=== PATIENT | female | born 1960 | race African-American/Black ===

== ENCOUNTER → 2017-06-26 | Outpatient (CLI) | payer OTHER ==
[~2017-06-26] MED LIST: COREG PO; IBUPROFEN PO; LISINOPRIL PO; PEPCID AC20 MG PO; PREDNISONE PO; ZYRTEC PO
--- NOTE | ~2017-06-26 | CR97 ---
[facility] A Service of [facility] RADIOLOGY TEXT RESULTS PATIENT: DANIELLA MIMS LOCATION: [facility] : 64 UNIT #: [id number] AGE: [address]: Monico Sarkar III, MD SEX: F ORDER DR: [id number] [place], [place] [address] [id number] O MR#: [id number] #: [id number] NAME: DANIELLA MIMS : 1960 SEX: F STUDY DATE/TIME: 06/26/2017 7:59 UNIT: [facility] ROOM: STUDY DESCRIPTION: CR Esophagram Attending Physician: Monico Sarkar III, M.D. Referring Physician: Monico Sarkar III, M.D. Ordering Physician: Monico Sarkar III, M.D. Primary Care Physician: Hui Howell M.D. MEDICAL IMAGING REPORT This report is preliminary unless electronic signature is present EXAM Single-contrast barium esophagram. INDICATION dysphagia TECHNIQUE The patient was administered thin barium and multiple fluoroscopic images were obtained. FINDINGS Phi angle on today's exam is roughly 58.9 degrees which really is not significantly changed when compared to the patient's initial postoperative examination. The patient's gastric pouch does appear dilated and passage of contrast through the laparoscopic gastric band was extremely slow, the channel certainly appears very narrowed. Again, there is concentric dilatation of the gastric pouch. Patient was noted to have spontaneous reflux into at least the mid esophagus. Esophageal motility appeared within normal limits. Total fluoroscopy time was 1 minute. A total of 14 fluoroscopic images were obtained. IMPRESSION 1. No evidence of laparoscopic gastric band slippage. 2. I do think that the patient's laparoscopic gastric band is too tight. There is extremely slow passage of contrast material through the channel which appears visually very narrowed. The patient was also noted to have spontaneous reflux of contrast into the mid thoracic esophagus. Dictated by... [facility] A Service of [facility] RADIOLOGY TEXT RESULTS PATIENT: DANIELLA MIMS LOCATION: [facility] #: [id number] : 64 UNIT #: [id number] AGE: [address]: Monico Sarkar III, MD SEX: F ORDER DR: Siobhan Zavala M.D. THIS IS AN ELECTRONICALLY VERIFIED REPORT Siobhan Zavala M.D. at 06/27/2017 12:46 PM AFF/tmw TD: 06/26/2017 22:27 JOB #: [id number] MEDICAL IMAGING REPORT Page 1 of 1 COPY
== END | disposition home or self-care (01) ==
LOC: CRAD 07:20
DX: R13.10 Dysphagia, unspecified (principal)
CPT/HCPCS: 74220